=== PATIENT | male | born 1980 | race Two or more races ===

== ENCOUNTER 2021-06-19 03:40 | Inpatient (IN) | payer OTHER ==
[~2021-06-19] VITALS: Ht 182.9 cm; Wt 72.7 kg
[2021-06-19 04:23] LABS: COVID AG,FIA SOURCE NASOPHARYNGEAL
[2021-06-19 04:46] LABS: BASOPHILS % (AUTO) 0.2 % (0.0-2.0); EOSINOPHILS % (AUTO) 0.4 % (1.0-6.0); HEMOGLOBIN 12.8 g/dL (13.5-17.5); LYMPHOCYTES # (AUTO) 1.4 K/uL (1.0-4.8); LYMPHOCYTES % (AUTO) 25.4 % (22.0-44.0); MEAN CORPUSCULAR HEMOGLOBIN 28.4 pg (26.0-34.0); MEAN CORPUSCULAR HGB CONC 34.6 G/dL (31.0-37.0); MEAN CORPUSCULAR VOLUME 82 fL (80-100); MONOCYTES # (AUTO) 0.5 K/uL (0.1-1.0); MONOCYTES % (AUTO) 8.6 % (2.0-9.0); NEUTROPHILS # (AUTO) 3.5 K/uL (1.8-7.7); NEUTROPHILS % (AUTO) 65.4 % (40.0-70.0); PLATELET COUNT (AUTO) 259 K/uL (150-450); RED BLOOD CELL COUNT(AUTO) 4.52 MIL/uL (4.50-5.90); RED CELL DISTRIBUTION WIDTH 15.4 % (11.5-14.5)
[2021-06-19 04:58] LABS: ANION GAP 6 mmol/L (8-16); CARBON DIOXIDE 28 mmol/L (22-29); CHLORIDE 103 mmol/L (98-107); CREATININE 0.78 mg/dL (0.60-1.30); GLOMERULAR FILTR. RATE CALC > 60 mL/min (>60); GLUCOSE,RANDOM 103 mg/dL (70-110); POTASSIUM 3.5 mmol/L (3.5-5.1); SODIUM SERUM 137 mmol/L (136-145); UREA NITROGEN, BLOOD 11 mg/dL (7-18)
[2021-06-19 05:12] LABS: ALANINE AMINOTRANSFERASE 86 U/L (12-78); ALBUMIN 3.4 g/dL (3.4-5.0); ALKALINE PHOSPHATASE 79 U/L (46-116); ASPARTATE AMINOTRANSFERASE 36 U/L (15-37); BILIRUBIN,TOTAL 1.7 mg/dL (0.1-1.0); CHOLESTEROL 120 mg/dL (131-200); HDL CHOLESTEROL 75 mg/dL (40-60); TOTAL PROTEIN, SERUM 8.2 g/dL (6.4-8.2); TRIGLYCERIDES 34 mg/dL (15-150)
[2021-06-19 05:13] LABS: CHOL/HDL RATIO 1.6 (4.2-7.3); LDL CHOL (CALC.) 38 mg/dL (0-130); THYROID STIMULATING HORMONE 0.75 uIU/mL (0.36-3.74)
[2021-06-19] MEDS ORDERED: ACETAMINOPHEN 325 MG TABLET PO PRN (06:15)
[2021-06-19] MEDS: HEPARIN SODIUM,PORCINE 5,000 UNITS/ML VIAL SQ SCH ×3 (07:15→23:51)
[2021-06-19] MEDS ORDERED: LOPERAMIDE HCL 2 MG/15 ML SUSPENSION UDCUP PO PRN (12:45)
[2021-06-19] MEDS ORDERED: DICYCLOMINE HCL 10 MG CAPSULE PO PRN (12:45)
[2021-06-19] MEDS ORDERED: IBUPROFEN 600 MG TABLET PO PRN (12:45)
[2021-06-19] MEDS ORDERED: MAG HYDROX/AL HYDROX/SIMETH ES 30 ML SUSPENSION UDCUP PO PRN (12:45)
[2021-06-19] MEDS ORDERED: HydrOXYzine PAMOATE 50 MG CAPSULE PO PRN (12:45)
[2021-06-19] MEDS ORDERED: PROMETHAZINE HCL 25 MG TABLET PO PRN (12:45)
[2021-06-19] MEDS: ONDANSETRON HCL 4 MG/2 ML VIAL IVP PRN (13:41)
[2021-06-19] MEDS: LORazepam 1 MG TABLET PO PRN (13:41)
[2021-06-19] MEDS: ACETAMINOPHEN 325 MG TABLET PO PRN ×2 (13:41→21:10)
[2021-06-19] MEDS: SODIUM CHLORIDE 0.45% 1,000 ML IV SCH (13:42)
[2021-06-19 14:11] VITALS: BP 111/58
[2021-06-19 16:01] VITALS: BP 147/83
[2021-06-19 19:25] VITALS: BP 140/90
[2021-06-19 19:45] VITALS: BP 140/90
[2021-06-19 20:16] LABS: APPEARANCE,URINE CLEAR (CLEAR); BILIRUBIN,URINE NEGATIVE (NEGATIVE); GLUCOSE, URINE (UA) NEGATIVE (NEGATIVE); KETONES,URINE 40 mg/dL (NEGATIVE); LEUKOCYTE ESTERASE ,URINE NEGATIVE (NEGATIVE); NITRATE,URINE NEGATIVE (NEGATIVE); OCCULT BLOOD,URINE NEGATIVE (NEGATIVE); PH,URINE 6.5 (5.0-8.0); PROTEIN,URINE NEGATIVE (NEGATIVE)
[2021-06-19 20:22] LABS: AMPHET/METH SCREEN,URINE POSITIVE (NEGATIVE); BARBITURATE SCREEN, URINE NEGATIVE (NEGATIVE); BENZODIAZEPINES SCREEN,URINE NEGATIVE (NEGATIVE); CANNABINOID SCREEN,URINE NEGATIVE (NEGATIVE); COCAINE SCREEN,URINE NEGATIVE (NEGATIVE); METHADONE SCREEN, URINE NEGATIVE (NEGATIVE); OPIATE SCREEN,URINE NEGATIVE (NEGATIVE)
[2021-06-19 20:24] LABS: BACTERIA,URINE None Seen /HPF (None Seen); RBC,URINE 0-2 /HPF (0-2); SQUAMOUS EPITHELIAL CELL,UR Rare /LPF (None Seen); WBC,URINE 0-2 /HPF (0-5)
[2021-06-19 20:31] LABS: PHENCYCLIDINE SCREEN,URINE NEGATIVE (NEGATIVE)
[2021-06-19] MEDS: TraZODone HCL 50 MG TABLET PO PRN (21:10)
[2021-06-19 23:26] VITALS: BP 143/98
[2021-06-20] MEDS: SODIUM CHLORIDE 0.45% 1,000 ML IV SCH ×2 (02:48→14:46)
[2021-06-20] MEDS: LORazepam 1 MG TABLET PO PRN ×2 (04:07→22:47)
[2021-06-20] MEDS: BACLOFEN 10 MG TABLET PO PRN ×3 (04:07→22:47)
[2021-06-20 04:35] VITALS: BP 149/74
[2021-06-20] MEDS ORDERED: LORazepam 2 MG TABLET PO PRN (07:00)
[2021-06-20 07:12] VITALS: BP 142/78
[2021-06-20] MEDS: HEPARIN SODIUM,PORCINE 5,000 UNITS/ML VIAL SQ SCH ×2 (09:41→15:44)
[2021-06-20] MEDS: ONDANSETRON HCL 4 MG/2 ML VIAL IVP PRN ×2 (11:57→16:31)
[2021-06-20 15:58] VITALS: BP 124/86
[2021-06-20 19:23] VITALS: BP 129/72
[2021-06-20] MEDS: TraZODone HCL 50 MG TABLET PO PRN (22:47)
[2021-06-21] MEDS: HEPARIN SODIUM,PORCINE 5,000 UNITS/ML VIAL SQ SCH ×4 (00:12→23:22)
[2021-06-21] MEDS: ONDANSETRON HCL 4 MG/2 ML VIAL IVP PRN ×2 (03:02→19:44)
[2021-06-21] MEDS: SODIUM CHLORIDE 0.45% 1,000 ML IV SCH ×2 (03:07→16:09)
[2021-06-21 04:39] VITALS: BP 138/84
[2021-06-21 08:25] VITALS: BP 141/53
[2021-06-21] MEDS: LORazepam 1 MG TABLET PO PRN ×2 (10:04→23:19)
[2021-06-21 12:02] VITALS: BP 105/58
[2021-06-21] MEDS ORDERED: LOPERAMIDE HCL 2 MG CAPSULE PO PRN (12:45)
[2021-06-21 16:34] VITALS: BP 108/57
[2021-06-21 20:46] VITALS: BP 134/79
[2021-06-21] MEDS: TraZODone HCL 50 MG TABLET PO PRN (20:51)
[2021-06-22 04:04] VITALS: BP 128/70
[2021-06-22] MEDS: SODIUM CHLORIDE 0.45% 1,000 ML IV SCH (06:29)
[2021-06-22 08:03] VITALS: BP 134/82
[2021-06-22] MEDS: LORazepam 1 MG TABLET PO SCH ×4 (08:15→19:54)
[2021-06-22] MEDS: HEPARIN SODIUM,PORCINE 5,000 UNITS/ML VIAL SQ SCH ×3 (08:15→23:38)
[2021-06-22] MEDS: LORazepam 1 MG TABLET PO PRN (10:15)
[2021-06-22] MEDS: CloNIDine HCL 0.1 MG TABLET PO PRN ×2 (11:17→17:59)
[2021-06-22] MEDS: ONDANSETRON HCL 4 MG/2 ML VIAL IVP PRN (11:17)
[2021-06-22 16:16] VITALS: BP 118/67
[2021-06-22 19:59] VITALS: BP 123/61
[2021-06-23] MEDS: LORazepam 1 MG TABLET PO PRN (04:02)
[2021-06-23 05:15] VITALS: BP 111/58
[2021-06-23] MEDS ORDERED: LORazepam 1 MG TABLET PO PRN (07:00)
[2021-06-23 08:07] VITALS: BP 130/76
[2021-06-23] MEDS: CloNIDine HCL 0.1 MG TABLET PO PRN (10:41)
[2021-06-23] MEDS: HEPARIN SODIUM,PORCINE 5,000 UNITS/ML VIAL SQ SCH ×2 (10:41→15:46)
[2021-06-23] MEDS: ONDANSETRON HCL 4 MG/2 ML VIAL IVP PRN (13:52)
[2021-06-23 16:22] VITALS: BP 111/77
[2021-06-23 19:44] VITALS: BP 107/63
[2021-06-23] MEDS: TraZODone HCL 50 MG TABLET PO PRN (20:27)
[2021-06-24] MEDS: HEPARIN SODIUM,PORCINE 5,000 UNITS/ML VIAL SQ SCH (00:45)
[2021-06-24 04:36] VITALS: BP 114/68
== END 2021-06-24 08:15 | DRG 897 ==
LOC: EMS 03:41 → 6S 12:13
PROVIDERS: ADMIT Internal Medicine; ATTEND Internal Medicine
PROC: HZ2ZZZZ Detoxification Services for Substance Abuse Treatment (ICD-10-PCS; principal; 2021-06-19)
DX: F11.23 Opioid dependence with withdrawal (principal); Z20.822 Contact with and (suspected) exposure to COVID-19
CPT/HCPCS: 80053; 80061; 81001; 84443; 85025; 99285; G0480; J1644; J2405